=== PATIENT | male | born 1990 | race American Indian/Alaskan Native ===

== ENCOUNTER 2017-04-15 00:06 | Emergency (ER) | payer SELFPAY ==
--- NOTE | 2017-04-15 08:14 | Emergency Department Report ---
HPI - General Chief Complaint: Sore Throat Time Seen by Provider: 04/15/17 08:14 - HPI HPI: Patient reports sore throat 10 days. Denies a fever or chills. Denies any nausea or vomiting. Denies or difficulty controlling secretions. Denies any neck pain or stiffness. Blood pressure is 158/101 and he denies any history of high blood pressure but reports family history of high blood pressure. Denies any nasal congestion or runny nose. Denies any chest pain or shortness of breath. [id number] pain medication does not help. Pain is worse with swallowing. ED Past Medical Hx - Past Medical History Previous Medical History?: No - Surgical History Past Surgical History?: No - Family History Family history: hypertension - Social History Smoking Status: Never Smoker Substance Use Type: None - Medications Home Medications: Home Medications Medication Instructions Recorded Confirmed Last Taken Type Amoxicillin [Amoxicillin TAB] 875 mg PO BID 10 Days #20 tablet 04/15/17 Unknown Rx Ibuprofen [Motrin] 800 mg PO Q8HR PRN #12 tablet 04/15/17 Unknown Rx ED Review of Systems ROS: Stated complaint: SORE THROAT Other details as noted in HPI Comment: All other systems reviewed and negative Constitutional: no symptoms reported ENT: throat pain. denies: ear pain, dental pain, hearing loss, congestion Respiratory: denies: cough, orthopnea, shortness of breath, SOB with exertion, SOB at rest, stridor, wheezing Cardiovascular: denies: chest pain, palpitations, dyspnea on exertion, edema, syncope, paroxysmal nocturnal dyspnea Gastrointestinal: denies: abdominal pain, nausea, vomiting Musculoskeletal: denies: back pain, arthralgia, myalgia Skin: denies: rash Neurological: denies: headache, weakness, numbness, paresthesias, confusion, abnormal gait, vertigo Physical Exam - Physical Exam Vital Signs: Vital Signs 04/15/17 04/15/17 01:24 04:27 Temperature 98.3 F 97.9 F Pulse Rate 73 62 Respiratory 18 18 Rate Blood Pressure 161/95 158/101 O2 Sat by Pulse 100 99 Oximetry Vital Signs 04/15/17 04/15/17 04/15/17 01:24 04:27 08:08 Temperature 98.3 F 97.9 F Pulse Rate 73 62 Respiratory 18 18 18 Rate Blood Pressure 161/95 158/101 144/98 O2 Sat by Pulse 100 99 Oximetry General: This is a 27-year-old male well-nourished well-developed in no acute distress. Physical Exam: Head: Normocephalic atraumatic Ears:BIateral TM pearly ohara .Medardo EAC with normal exam. No mastoid bone tenderness. Mouth: Moist, positive Pharyngeal exudates and erythema with tonsillar enlargement.. Negative peritonsillar abscesses. UVULA midline and oral airways patent. Tongue is normal. Speech is normal Neck: Nontender to palpate, supple, normal range of motion. Positive anterior cervical adenopathy. No c-spine tenderness. Nose: Bilateral nasal normal mucosa . Maxillary and frontal sinuses non- tender to palpate. Eyes: Bilateral Sclerae and conjunctiva without injection. Bilateral pupils equal and reactive to light. Bilateral lids are normal. Normal accommodation.BEOMI Abdomen: Soft, nontender to palpation in all quadrants, no guarding or rebound tenderness. Normal bowel sounds in all quadrants and no CVA tenderness Lungs: Clear to auscultate bilaterally, no rhonchi wheezes or rales. Normal work of breathing and no chest wall tenderness. Dry cough CV: S1, S2. Regular rate and rhythm, negative murmur. Capillary refill is less than 3 seconds Skin: Clean dry and intact, no rashes or lesions Psych: Normal mood and behavior ED Course Vital Signs 04/15/17 04/15/17 01:24 04:27 Temperature 98.3 F 97.9 F Pulse Rate 73 62 Respiratory 18 18 Rate Blood Pressure 161/95 158/101 O2 Sat by Pulse 100 99 Oximetry Vital Signs 04/15/17 04/15/17 04/15/17 01:24 04:27 08:08 Temperature 98.3 F 97.9 F Pulse Rate 73 62 Respiratory 18 18 18 Rate Blood Pressure 161/95 158/101 144/98 O2 Sat by Pulse 100 99 Oximetry - Reevaluation(s) Reevaluation #1: 04/15/17 10:26 Rapid strep negative and culture pending. Received Motrin 800 mg by mouth prior to discharge. ED Medical Decision Making - Lab Data Rapid strep negative and culture pending - Medical Decision Making ED course: Pt here with sore throat 10 days. Physical findings for enlarged tonsils with positive pharyngeal erythema and exudate and enlarged cervical lymph nodes. able to control his secretions without any drooling. He has no other respiratory symptoms and pain controlled with Motrin. Strep test is negative and culture pending. Patient with exudative pharyngitis and also elevated blood pressure without any history of hypertension. I discussed with patient that he needs to keep a log of his blood pressure and I also explained his strep test along with diagnosis and treatment plan and he voiced understanding. He is able to tolerate oral liquids without any difficulties. Patient discharged home with prescription for amoxicillin and Motrin and to follow-up with his primary care physician. Critical care attestation.: If time is entered above; I have spent that time in minutes in the direct care of this critically ill patient, excluding procedure time. ED Disposition Clinical Impression: Exudative pharyngitis, Elevated blood-pressure reading without diagnosis of hypertension, Morbid obesity Disposition: - TO HOME OR SELFCARE Is pt being admited?: No Does the pt Need Aspirin: No Condition: Stable Instructions: Pharyngitis (ED), Heart Healthy Diet (ED), DASH Eating Plan (ED) , Low Sodium Diet (ED), Hypertension (ED), Weight Management (ED), Obesity (ED) Additional Instructions: Please see discharge instructions on elevated blood pressure and please keep a lot of blood pressure and schedule appointment with primary care physician for evaluation. Further discharge instruction on lifestyle modification with diet and weight control. Please take antibiotic as prescribed Increase her fluid intake Prescriptions: Amoxicillin [Amoxicillin TAB] 875 mg PO BID 10 Days #20 tablet Ibuprofen [Motrin] 800 mg PO Q8HR PRN #12 tablet PRN Reason: Sore Throat Referrals: [facility] [Outside] - 3-5 Days Forms: Work/School Release Form(ED)
[2017-04-15 08:53] VITALS: BP 144/98
[2017-04-15] MEDS ORDERED: MOTRIN PO ONE (10:26)
== END 2017-04-15 10:46 | disposition home or self-care (01) ==
LOC: ED 00:06
DX: J02.9 Acute pharyngitis, unspecified (principal); E66.01 Morbid (severe) obesity due to excess calories; R03.0 Elevated blood-pressure reading, without diagnosis of hypertension
CPT/HCPCS: 87116; 87430; 99282